=== PATIENT | male | born 1990 | race Caucasian/White ===

== ENCOUNTER → 2018-11-16 07:59 | Outpatient (CLI) | payer OTHER, SELFPAY ==
--- NOTE | 2018-11-16 08:01 | DI.US.S_ITS ---
PROCEDURE: US ABDOMEN LIMITED INDICATIONS: possible hernia TECHNIQUE: Real-time focused scanning was performed of the abdomen, with image documentation. COMPARISON: None. FINDINGS: No right groin inguinal hernia or other groin abnormality seen. IMPRESSION: No right inguinal canal hernia or other abnormality seen. Dictated by: Cedric JULES Interpreted: Gilda Page MD on 11/16/2018 at 8:58 Approved by: Gilda Page MD, PhD on 11/16/2018 at 12:54
[2018-11-16 09:27] LABS: Alanine Aminotransferase 35 IU/L (21-72); Albumin 4.5 g/dL (3.5-5.0); Albumin Globulin Ratio 1.5 (1.0-2.8); Alkaline Phosphatase 62 U/L (38-126); Aspartate Aminotransferase 26 IU/L (17-59); BUN Creatinine Ratio 18.8 (6-22); Bilirubin Total 0.5 mg/dL (0.2-1.3); Blood Urea Nitrogen 15 mg/dL (9-20); Calcium 9.9 mg/dL (8.4-10.2); Carbon Dioxide 31 mmol/L (22-32); Chloride 102 mmol/L (98-107); Cholesterol 171 mg/dL (140-199); Estimated Glomerular Filt Rate > 60.0 mL/min (>60); Globulin 3.1 g/dL (1.7-4.1); Glucose 88 mg/dL (70-100); HDL Cholesterol 40 mg/dL (40-60); HEMOLYSIS < 15 (0-50); LDL Cholesterol Calculated 112 mg/dL (<100); Potassium 4.7 mmol/L (3.4-5.1); Sodium 142 mmol/L (137-145); Total Protein 7.6 g/dL (6.3-8.2); Triglycerides 94 mg/dL (35-150)
== END ==
PROVIDERS: PCP Hospitalist; Visit Provider Hospitalist
DX: R10.30 Lower abdominal pain, unspecified (principal); G89.29 Other chronic pain; M54.30 Sciatica, unspecified side; Z82.49 Family history of ischemic heart disease and other diseases of the circulatory system
CPT/HCPCS: 36415; 76705; 80053; 80061

== ENCOUNTER → 2019-01-01 16:44 | Outpatient (CLI) | payer OTHER, SELFPAY ==
--- NOTE | 2019-01-01 16:47 | DI.RAD.S_ITS ---
PROCEDURE: XR LUMBAR SPINE 2-3V INDICATIONS: persistant low back pain TECHNIQUE: 3 views of the lumbar spine were acquired. COMPARISON: None. FINDINGS: Bones: 5 [id number] vertebrae are present. There is normal bony alignment. No vertebral body compression fractures. No suspicious bony lesions. Minimal L5-S1 disc degeneration. Soft tissues: Overlying bowel gas pattern is normal. No suspicious soft tissue calcifications. IMPRESSION: Minimal L5-S1 disc degeneration. Dictated by: Cedric MALHOTRA Interpreted: Babatunde Sadler MD on 01/01/2019 at 17:01 Approved by: Babatunde Sadler M.D. on 01/01/2019 at 17:15
[2019-01-01 17:56] LABS: Erythrocyte Sedimentation Rate 5 MM/HR (0-15)
[2019-01-04 20:44] LABS: ANA Screen, IFA Negative (Negative)
== END ==
PROVIDERS: PCP Hospitalist; Visit Provider Hospitalist
DX: M54.9 Dorsalgia, unspecified (principal); M25.60 Stiffness of unspecified joint, not elsewhere classified
CPT/HCPCS: 36415; 72100; 85651; 86038

== ENCOUNTER → 2019-07-08 14:08 | Outpatient (CLI) | payer OTHER, SELFPAY ==
[2019-07-08 14:54] LABS: Alanine Aminotransferase 50 IU/L (<50); Albumin 4.9 g/dL (3.5-5.0); Albumin Globulin Ratio 1.4 (1.0-2.8); Alkaline Phosphatase 72 U/L (38-126); Aspartate Aminotransferase 35 IU/L (17-59); BUN Creatinine Ratio 17.5 (6-22); Bilirubin Total 0.4 mg/dL (0.2-1.3); Blood Urea Nitrogen 14 mg/dL (9-20); Calcium 10.2 mg/dL (8.4-10.2); Carbon Dioxide 30 mmol/L (22-32); Chloride 101 mmol/L (98-107); Estimated Glomerular Filt Rate > 60.0 mL/min (>60); Globulin 3.6 g/dL (1.7-4.1); Glucose 84 mg/dL (70-100); HEMOLYSIS < 15 (0-50); Potassium 4.3 mmol/L (3.4-5.1); Sodium 141 mmol/L (137-145); Total Protein 8.5 g/dL (6.3-8.2)
[2019-07-08 14:56] LABS: Add Manual Diff / Slide Review NO; Basophils Absolute Auto 100 /uL (0-100); Basophils Percent Auto 0.6 % (0-2); Eosinophils Absolute Auto 200 /uL (0-450); Eosinophils Percent Auto 2.4 % (2-4); Hematocrit 44.5 % (41-53); Lymphocytes Absolute Auto 2600 /uL (1100-4500); Lymphocytes Percent Auto 31.2 % (25-40); Mean Corpuscular HGB Conc 33.7 % (30-36); Mean Corpuscular Hemoglobin 27.8 PG (26-34); Mean Corpuscular Volume 82.4 fL (80-100); Monocytes Absolute Auto 700 /uL (0-900); Monocytes Percent Auto 8.4 % (3-14); Neutrophils Absolute Auto 4700 /uL (1500-7000); Neutrophils Percent Auto 57.4 % (50-75); Platelet Count 245 X10^3/uL (150-400); Red Cell Distribution Width 12.8 % (11.6-14.8); White Blood Cell Count 8.2 X10^3/uL (4.5-11.0)
[2019-07-08 16:38] LABS: Thyroid Stimulating Hormone 2.01 uIU/mL (0.47-4.68)
== END ==
DX: F32.1 Major depressive disorder, single episode, moderate (principal)
CPT/HCPCS: 36415; 80053; 84443; 85025